=== PATIENT | female | born 1950 | race Caucasian/White ===

== ENCOUNTER → 2025-03-21 | Outpatient (CLI) | payer MEDICARE ==
[~2025-03-21] MED LIST: FURO40TA4 PO; GABA-1222 PO; GABA400C PO; GLIP10TA21 PO; LISI2.5T13 PO; METF500T17 PO; PIOG30TA27 PO; TIZA4TAB9 PO; TORS20TA2 PO; TRAZ-163 PO
== END | disposition home or self-care (01) ==
LOC: RAD 12:49
PROVIDERS: ATTEND Nurse Practitioner Family
DX: S92.355A Nondisplaced fracture of fifth metatarsal bone, left foot, initial encounter for closed fracture (principal); S90.32XA Contusion of left foot, initial encounter; S09.90XA Unspecified injury of head, initial encounter; G93.89 Other specified disorders of brain; X58.XXXA Exposure to other specified factors, initial encounter; Y93.89 Activity, other specified; Y92.89 Other specified places as the place of occurrence of the external cause; Y99.8 Other external cause status; M77.8 Other enthesopathies, not elsewhere classified
CPT/HCPCS: 70450; 73630-LT

== ENCOUNTER → 2025-05-02 | Outpatient (CLI) | payer MEDICARE | END | disposition home or self-care (01) | LOC: RAD 11:08 | PROVIDERS: ATTEND Nurse Practitioner Family | DX: S92.302D Fracture of unspecified metatarsal bone(s), left foot, subsequent encounter for fracture with routine healing (principal); X58.XXXD Exposure to other specified factors, subsequent encounter | CPT/HCPCS: 73630-LT ==